=== PATIENT | male | born 1940 | race Caucasian/White ===

== ENCOUNTER 2018-02-06 09:07 | Day surgery (SDC) | payer MEDICARE, OTHER ==
[2018-02-01 13:47] VITALS: BMI 26.3
--- NOTE | 2018-02-06 06:58 | HP ---
HISTORY OF PRESENT ILLNESS: Mr. 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 He does have also have some symptoms that would potentially match neurogenic claudication. Shy fortune reports having no symptoms before August of this year at any time. He started 2 weeks of physical the rapy and has been wearing which he feels both helped him to a fair degree. He has an MRI disc from reveals clinically significant stenosis at L4-L5 centrally that could really explain any or all of his lower extremity symptoms are associated early grade 1 sulcus as well bilateral neural f oramina are intact. PAST MEDICAL HISTORY: Significant for kidney trouble, hypertension, and DVT. PAST SURGICAL HISTORY: Cervical laminectomy and diskectomy. CURRENT MEDICATIONS: Eliquis, lisinopril. ALLERGIES: No known drug allergies. PHYSICAL EXAMINATION: The patient is alert and oriented x3. Gait is mildly antalgic. Lower extremi ty motor exam is normal. IMPRESSION: Lumbar stenosis with neurogenic claudication. PLAN: Dr. Villa met with the patient, reviewed imaging and advocated for L4-L5 decompression. We ex plained to the patient the risks, benefits, and alternatives to the procedure. The patient expressed understanding and would like to move forward with surgery as discussed. I do believe the patient i s mentally competent and capable of making medical decisions for himself. We will move forward with surgery as planned. Juan Banks PA-C, dictating for Ross Villa M.D.
[2018-02-06 10:02] LABS: Hemoglobin 16.5 g/dL (14.0-18.0); Mean Corpuscular HGB CONC 33.7 g/dL (32.0-36.0); Mean Corpuscular Hemoglobin 32.4 pg (27.0-31.0); Mean Corpuscular Volume 95.9 fL (78.0-98.0); Platelet Count 182 thou/uL (130-400); RBC Distribution Width 12.4 % (11.5-14.5); White Blood Cell (WBC) Count 5.7 thou/uL (4.8-10.8)
[2018-02-06] MEDS ORDERED: CEFAZOLIN 2 GM/50 ML BAG ONE ×2 (10:03→15:00)
[2018-02-06] MEDS ORDERED: Midazolam HCl 2 mg/2 ml Vial ONE (11:45)
[2018-02-06] MEDS ORDERED: Bupivacaine HCl 0.5%/Epinephrine 1:200,000/PF 30 ml Vial ONE (11:54)
[2018-02-06] MEDS ORDERED: Fentanyl 100 MCG/2 ML VIAL ONE ×3 (12:06→13:45)
[2018-02-06] MEDS ORDERED: Ketorolac Tromethamine 30 MG/ML VIAL ONE (13:45)
[2018-02-06] MEDS ORDERED: Tamsulosin HCl 0.4 MG CAP ONE (13:46)
--- NOTE | 2018-02-06 15:04 | EKG ---
Test Reason : PREOP Blood Pressure : / mmHG Vent. Rate : 063 BPM Atrial Rate : 063 BPM P-R Int : 184 ms QRS Dur : 086 ms QT Int : 398 ms P-R-T Axes : 058 049 033 degrees QTc Int : 407 ms Normal sinus rhythm Normal ECG Confirmed by LACY BARRAZA ([id number]) on 02/06/2018 3:04:18 PM Referred By: JACQUE Confirmed By:LACY BARRAZA
[2018-02-06] MEDS ORDERED: Ondansetron ODT 4 MG TAB ONE (15:34)
--- NOTE | 2018-02-06 20:35 | OP ---
DATE OF PROCEDURE: 02/06/2018 SURGEON: Ross Villa M.D. BAND EDGER: Juan Banks PA-C. INDICATION: Pain. DIAGNOSIS: Lumbar stenosis. PROCEDURE: L4-5 lumbar decompression. ANESTHESIA: General. TECHNIQUE: The patient was brought to the operating room and placed under general anesthesia. He wa s flipped from a supine to prone position on the operating room table. A linear incision was planned at L4-5. After prepping and draping, the incision was created. The soft tissues were swept away fr om midline. A self-retaining retractor was placed. After confirming the appropriate level for seria l fluoroscopy, an Adson rongeur was used to remove the spinous process along the inferior aspect of L 4 and the superior aspect of L5. High-speed cutting drill bit as well as 2, 3 and 4 mm Kerrisons wer e used to perform a laminectomy. Laminectomy was extended laterally to encompass the medial aspects of the facet joints. After complete decompression, the wound was irrigated. Hemostasis was maintain ed throughout. The wound was then closed in anatomic layers and a pressure dressing was applied. Th ere were no known procedural complications.
== END 2018-02-06 16:45 | disposition home or self-care (01) ==
LOC: SDC 09:07
PROVIDERS: ATTEND Neurological Surgery
PROC: 01NB0ZZ Release Lumbar Nerve, Open Approach (ICD-10-PCS; principal; 2018-02-06)
DX: M48.062 Spinal stenosis, lumbar region with neurogenic claudication (principal); I10 Essential (primary) hypertension; Z86.718 Personal history of other venous thrombosis and embolism; Z79.01 Long term (current) use of anticoagulants; Z79.899 Other long term (current) drug therapy
CPT/HCPCS: 36415; 76001; 85027; 93005; 93010; 96374; 96375; J0670; J1885; J2250; J3010; Q0162